=== PATIENT | male | born 1955 | race Caucasian/White ===

== ENCOUNTER 2016-06-19 08:53 | Outpatient (CLI) | payer MEDICAID | END 2016-06-19 08:54 | disposition home or self-care (01) | DX: B18.2 Chronic viral hepatitis C (principal); E03.9 Hypothyroidism, unspecified ==

== ENCOUNTER 2016-08-12 08:00 | Outpatient (CLI) | payer MEDICAID | END 2016-08-12 08:01 | disposition home or self-care (01) | DX: B18.2 Chronic viral hepatitis C (principal) ==

== ENCOUNTER 2016-08-13 12:48 | Outpatient (CLI) | payer MEDICAID | END 2016-08-13 12:49 | disposition home or self-care (01) | DX: B18.2 Chronic viral hepatitis C (principal) ==

== ENCOUNTER 2017-01-06 08:00 | Outpatient (CLI) | payer MEDICAID ==
[2017-01-06 20:04] LABS: THYROID STIMULATING HORMONE 0.5 uIU/mL (0.34-5.60)
== END 2017-01-06 08:01 | disposition home or self-care (01) ==
LOC: LAB.N 08:00
PROVIDERS: ATTEND Family Medicine
DX: E03.9 Hypothyroidism, unspecified (principal)
CPT/HCPCS: 36415; 84439; 84443

== ENCOUNTER 2017-02-02 14:00 | Outpatient (CLI) | payer MEDICAID | END 2017-02-02 14:01 | disposition home or self-care (01) | LOC: LAB 14:00 | PROVIDERS: ATTEND Internal Medicine Gastroenterology | DX: B18.2 Chronic viral hepatitis C (principal) | CPT/HCPCS: 36415; 87522 ==

== ENCOUNTER 2017-08-10 08:00 | Outpatient (CLI) | payer MEDICAID ==
[2017-08-10 19:24] LABS: BASOPHILS % (AUTO) 0.3 %; EOSINOPHILS # (AUTO) 0.1 10^3/uL (0.0-0.7); EOSINOPHILS % (AUTO) 1.2 %; HGB - HEMOGLOBIN 15.2 g/dL (14.0-18.0); LYMPHOCYTES # (AUTO) 1.8 10^3/uL (1.5-3.5); LYMPHOCYTES % (AUTO) 32.3 %; MEAN CORPUSCULAR HEMOGLOBIN 31.4 pg (27.0-31.0); MEAN CORPUSCULAR VOLUME 95.1 fL (80.0-94.0); MEAN PLATELET VOLUME 9.2 fL (7.4-11.4); MONOCYTES # (AUTO) 0.4 10^3/uL (0.0-1.0); MONOCYTES % (AUTO) 7.2 %; NEUTROPHILS # (AUTO) 3.4 10^3/uL (1.5-6.6); PLT - PLATELET COUNT 234 10^3/uL (130-450); RED BLOOD COUNT 4.84 10^6/uL (4.70-6.10); RED CELL DISTRIBUTION WIDTH 13.1 % (12.0-15.0); WHITE BLOOD COUNT 5.7 x10^3/uL (4.8-10.8)
[2017-08-10 19:31] LABS: THYROID STIMULATING HORMONE 0.19 uIU/mL (0.34-5.60)
[2017-08-10 19:33] LABS: FREE T4 (FREE THYROXINE) 1.09 ng/dL (0.58-1.64)
[2017-08-10 19:37] LABS: ALBUMIN 4.6 g/dL (3.2-5.5); ALBUMIN/GLOBULIN RATIO 1.6 (1.0-2.2); ALKALINE PHOSPHATASE 70 IU/L (42-121); ALT ALANINE AMINOTRANSFERASE 16 IU/L (10-60); AST ASPARTATE AMINOTRANSFERASE 23 IU/L (10-42); BILIRUBIN,TOTAL 0.9 mg/dL (0.2-1.0); BUN - BLOOD UREA NITROGEN 18 mg/dL (6-20); CALCIUM 9.4 mg/dL (8.5-10.3); CARBON DIOXIDE - CO2 26 mmol/L (21-32); CHLORIDE 105 mmol/L (101-111); CHOL/HDL RATIO 2.5 (<5.0); CHOLESTEROL 219 mg/dL; CREATININE 1.1 mg/dL (0.6-1.2); GFR - MDRD 68 (>89); GLUCOSE 102 mg/dL (70-100); HDL CHOLESTEROL 88 mg/dL; LDL CHOLESTEROL,CALCULATED 120 mg/dL; LDL/HDL RATIO 1.4 (<3.6); SODIUM 141 mmol/L (135-145); TOTAL PROTEIN 7.5 g/dL (6.7-8.2); VLDL CHOLESTEROL 11 mg/dL
== END 2017-08-10 08:01 | disposition home or self-care (01) ==
LOC: LAB.N 08:00
PROVIDERS: ATTEND Family Medicine
DX: Z51.81 Encounter for therapeutic drug level monitoring (principal); B18.2 Chronic viral hepatitis C; E03.9 Hypothyroidism, unspecified
CPT/HCPCS: 36415; 80053; 80061; 83721; 84439; 84443; 85025

== ENCOUNTER 2018-10-05 08:00 | Outpatient (CLI) | payer MEDICAID ==
[2018-10-05 18:52] LABS: BASOPHILS % (AUTO) 0.4 %; EOSINOPHILS # (AUTO) 0.1 10^3/uL (0.0-0.7); EOSINOPHILS % (AUTO) 0.8 %; LYMPHOCYTES # (AUTO) 1.2 10^3/uL (1.5-3.5); LYMPHOCYTES % (AUTO) 15.7 %; MEAN CORPUSCULAR HGB CONC 33.2 g/dL (32.0-36.0); MEAN CORPUSCULAR VOLUME 99.2 fL (80.0-94.0); MEAN PLATELET VOLUME 10.1 fL (7.4-11.4); MONOCYTES # (AUTO) 0.4 10^3/uL (0.0-1.0); MONOCYTES % (AUTO) 5.1 %; NEUTROPHILS # (AUTO) 6.1 10^3/uL (1.5-6.6); PLT - PLATELET COUNT 224 10^3/uL (130-450); RED BLOOD COUNT 4.84 10^6/uL (4.70-6.10); RED CELL DISTRIBUTION WIDTH 12.5 % (12.0-15.0); WHITE BLOOD COUNT 7.8 x10^3/uL (4.8-10.8)
[2018-10-05 19:17] LABS: ALBUMIN 4.4 g/dL (3.2-5.5); ALBUMIN/GLOBULIN RATIO 1.4 (1.0-2.2); ALKALINE PHOSPHATASE 68 IU/L (42-121); ALT ALANINE AMINOTRANSFERASE 17 IU/L (10-60); AST ASPARTATE AMINOTRANSFERASE 22 IU/L (10-42); BILIRUBIN,TOTAL 1.2 mg/dL (0.2-1.0); BUN - BLOOD UREA NITROGEN 20 mg/dL (6-20); CALCIUM 8.9 mg/dL (8.5-10.3); CARBON DIOXIDE - CO2 26 mmol/L (21-32); CHLORIDE 105 mmol/L (101-111); CHOL/HDL RATIO 2.2 (<5.0); CHOLESTEROL 252 mg/dL; GFR - MDRD 76 (>89); GLUCOSE 100 mg/dL (70-100); HDL CHOLESTEROL 114 mg/dL; LDL CHOLESTEROL,CALCULATED 127 mg/dL; LDL/HDL RATIO 1.1 (<3.6); SODIUM 141 mmol/L (135-145); TOTAL PROTEIN 7.6 g/dL (6.7-8.2); VLDL CHOLESTEROL 11 mg/dL
== END 2018-10-05 23:59 | disposition home or self-care (01) ==
LOC: LAB.N 08:00
PROVIDERS: ATTEND Physician Assistant Medical
DX: R73.01 Impaired fasting glucose (principal); N52.9 Male erectile dysfunction, unspecified; E03.9 Hypothyroidism, unspecified
CPT/HCPCS: 36415; 80053; 80061; 83721; 84443; 85025

== ENCOUNTER 2019-01-12 15:25 | Outpatient (CLI) | payer MEDICAID | END 2019-01-12 23:59 | disposition home or self-care (01) | LOC: LAB.R 15:25 | PROVIDERS: ATTEND Physician Assistant Medical | DX: Z12.11 Encounter for screening for malignant neoplasm of colon (principal) | CPT/HCPCS: 82274 ==

== ENCOUNTER 2019-03-09 08:11 | Day surgery (SDC) | payer MEDICAID ==
[~2019-03-09 08:11] MED LIST: SODIUM/POTASSIUM/MAG SULFATES 354 ML PREP KIT PO SCH
[2019-03-09] MEDS ORDERED: MIDAZOLAM 2 MG/2 ML VIAL IVP ONE (08:12)
[2019-03-09] MEDS ORDERED: fentaNYL 250 MCG/5 ML VIAL IVP ONE (08:12)
[2019-03-09] MEDS ORDERED: LACTATED RINGERS 1,000 ML IV ONE (08:53)
[2019-03-09 11:16] VITALS: BP 140/81
== END 2019-03-09 08:12 | disposition home or self-care (01) ==
LOC: SDS 08:11
PROVIDERS: ATTEND Surgery
PROC: 0DJD8ZZ Inspection of Lower Intestinal Tract, Via Natural or Artificial Opening Endoscopic (ICD-10-PCS; principal; 2019-03-09 09:45)
DX: K57.31 Diverticulosis of large intestine without perforation or abscess with bleeding (principal); K64.8 Other hemorrhoids; F17.210 Nicotine dependence, cigarettes, uncomplicated; I10 Essential (primary) hypertension; Z79.899 Other long term (current) drug therapy; Z80.0 Family history of malignant neoplasm of digestive organs; Z86.010 Personal history of colon polyps
CPT/HCPCS: 45378; A9270; J3010; J7120

== ENCOUNTER 2019-08-29 12:33 | Outpatient (CLI) | payer MEDICAID, OTHER ==
[2019-08-29 18:57] LABS: THYROID STIMULATING HORMONE 3.62 uIU/mL (0.34-5.60)
[2019-08-29 19:01] LABS: FREE T4 (FREE THYROXINE) 1.08 ng/dL (0.58-1.64)
== END 2019-08-29 23:59 | disposition home or self-care (01) ==
LOC: LAB.N 12:33
PROVIDERS: ATTEND Physician Assistant Medical
DX: E03.9 Hypothyroidism, unspecified (principal)
CPT/HCPCS: 36415; 84439; 84443; 86800

== ENCOUNTER 2020-12-23 08:00 | Outpatient (CLI) | payer MEDICAID ==
[2020-12-23 18:28] LABS: BILIRUBIN,URINE NEGATIVE (NEGATIVE); GLUCOSE, URINE (UA) NEGATIVE (NEGATIVE); KETONES,URINE (UA) NEGATIVE (NEGATIVE); LEUKOCYTE ESTERASE, URINE NEGATIVE (NEGATIVE); NITRITE,URINE NEGATIVE (NEGATIVE); OCCULT BLOOD,URINE NEGATIVE (NEGATIVE); PROTEIN,URINE NEGATIVE (NEGATIVE); UROBILINOGEN,URINE 0.2 (NORMAL) E.U./dL (NORMAL)
[2020-12-23 18:34] LABS: AMORPHOUS SEDIMENT,UR Marked /LPF; BACTERIA,URINE None Seen /HPF (None Seen); CLARITY,URINE CLEAR (CLEAR); RBC,URINE 0-5 /HPF (0-5); SQUAMOUS EPITHELIAL CELL,UR RARE Squamous (<= Few); WBC,URINE 0-3 /HPF (0-3)
[2020-12-23 18:39] LABS: BASOPHILS % (AUTO) 0.2 %; EOSINOPHILS # (AUTO) 0.2 10^3/uL (0.0-0.7); EOSINOPHILS % (AUTO) 2.9 %; HCT - HEMATOCRIT 50.9 % (42.0-52.0); HGB - HEMOGLOBIN 17.1 g/dL (14.0-18.0); LYMPHOCYTES # (AUTO) 1.5 10^3/uL (1.5-3.5); LYMPHOCYTES % (AUTO) 26.3 %; MEAN CORPUSCULAR HGB CONC 33.6 g/dL (32.0-36.0); MEAN CORPUSCULAR VOLUME 98.3 fL (80.0-94.0); MONOCYTES # (AUTO) 0.5 10^3/uL (0.0-1.0); NEUTROPHILS # (AUTO) 3.6 10^3/uL (1.5-6.6); NEUTROPHILS % (AUTO) 62.4 %; PLT - PLATELET COUNT 249 10^3/uL (130-450); RED BLOOD COUNT 5.18 10^6/uL (4.70-6.10); RED CELL DISTRIBUTION WIDTH 11.9 % (12.0-15.0); WHITE BLOOD COUNT 5.8 x10^3/uL (4.8-10.8)
[2020-12-23 19:02] LABS: ALBUMIN 4.5 g/dL (3.2-5.5); ALBUMIN/GLOBULIN RATIO 1.6 (1.0-2.2); ALKALINE PHOSPHATASE 77 IU/L (42-121); ALT ALANINE AMINOTRANSFERASE 16 IU/L (10-60); AST ASPARTATE AMINOTRANSFERASE 20 IU/L (10-42); BILIRUBIN,TOTAL 1.2 mg/dL (0.2-1.0); BUN - BLOOD UREA NITROGEN 19 mg/dL (6-20); CARBON DIOXIDE - CO2 29 mmol/L (21-32); CHLORIDE 103 mmol/L (101-111); CHOL/HDL RATIO 2.4 (<5.0); CHOLESTEROL 204 mg/dL; GFR - MDRD 75 (>89); GLUCOSE 104 mg/dL (70-100); HDL CHOLESTEROL 85 mg/dL; LDL CHOLESTEROL,CALCULATED 107 mg/dL; LDL/HDL RATIO 1.3 (<3.6); POTASSIUM 4.3 mmol/L (3.5-5.0); SODIUM 141 mmol/L (135-145); TOTAL PROTEIN 7.4 g/dL (6.7-8.2); TRIGLYCERIDES 60 mg/dL; VLDL CHOLESTEROL 12 mg/dL
[2020-12-23 19:11] LABS: THYROID STIMULATING HORMONE 0.1 uIU/mL (0.34-5.60)
[2020-12-23 19:12] LABS: FREE T3 3.17 pg/mL (2.5-3.9)
[2020-12-23 19:13] LABS: FREE T4 (FREE THYROXINE) 1.7 ng/dL (0.58-1.64)
== END 2020-12-23 23:59 | disposition home or self-care (01) ==
LOC: LAB.WCP 08:00
PROVIDERS: ATTEND Family Medicine
DX: I10 Essential (primary) hypertension (principal); R73.01 Impaired fasting glucose; E03.9 Hypothyroidism, unspecified; R35.1 Nocturia; R63.4 Abnormal weight loss; Z12.5 Encounter for screening for malignant neoplasm of prostate
CPT/HCPCS: 36415; 80053; 80061; 81001; 83721; 84153; 84439; 84443; 84481; 85025

== ENCOUNTER 2020-12-31 08:00 | Outpatient (CLI) | payer MEDICAID | END 2020-12-31 23:59 | disposition home or self-care (01) | LOC: LAB.WCP 08:00 | PROVIDERS: ATTEND Family Medicine | DX: I10 Essential (primary) hypertension (principal); Z12.5 Encounter for screening for malignant neoplasm of prostate; R35.1 Nocturia; R63.4 Abnormal weight loss; R73.01 Impaired fasting glucose; E03.9 Hypothyroidism, unspecified | CPT/HCPCS: 36415; 84153 ==

== ENCOUNTER 2022-08-07 13:41 | Outpatient (CLI) | payer MEDICARE, MEDICAID ==
--- NOTE | 2022-08-07 21:02 | XRAY Report ---
PROCEDURE: Lumbar Spine Complete INDICATIONS: MUSCLE SPASM LUMBAR HIP JOINT PX TECHNIQUE: 4 views of the lumbar spine were acquired. COMPARISON: None. FINDINGS: Bones: 5 drw-pab-krymkic vertebrae are present. Mild scoliosis. Disc space height loss at L4-L5. Sma ll vertebral body ossifies. No vertebral body compression fractures. No suspicious bony lesions. Soft tissues: Overlying bowel gas pattern is normal. No suspicious soft tissue calcifications. IMPRESSION: Moderate degenerative change in the lumbar spine. Reviewed by: Jermaine Staley MD on 08/07/2022 9:01 PM PST Approved by: Jermaine Staley MD on 08/07/2022 9:01 PM [facility] Station ID: [id number]
--- NOTE | 2022-08-07 21:04 | XRAY Report ---
PROCEDURE: Hip w/Pelvis 1V RT INDICATIONS: HIP JOINT PAIN, RIGHT TECHNIQUE: AP pelvis and right hip radiographs COMPARISON: Same day lumbar spine radiographs. FINDINGS: Bones: No fractures or dislocations. Right hip joint space narrowing and osteophytosis. Pelvic ring appears intact. No suspicious bony lesions. Soft tissues: The visualized bowel gas pattern is normal. No suspicious soft tissue calcifications. IMPRESSION: Severe right hip DJD. Reviewed by: Jermaine Staley MD on 08/07/2022 9:03 PM [facility] Approved by: Jermaine Staley MD on 08/07/2022 9:03 PM [facility] Station ID: [id number]
== END 2022-08-07 13:42 | disposition home or self-care (01) ==
LOC: DI 13:41
PROVIDERS: ATTEND Family Medicine
DX: M47.816 Spondylosis without myelopathy or radiculopathy, lumbar region (principal); M16.11 Unilateral primary osteoarthritis, right hip

== ENCOUNTER 2023-02-24 12:14 | Outpatient (CLI) | payer MEDICAID, MEDICARE ==
[2023-02-24 12:29] LABS: BASOPHILS % (AUTO) 0.4 %; EOSINOPHILS # (AUTO) 0.2 10^3/uL (0.0-0.7); EOSINOPHILS % (AUTO) 3.7 %; HCT - HEMATOCRIT 48.5 % (42.0-52.0); HGB - HEMOGLOBIN 16.3 g/dL (14.0-18.0); LYMPHOCYTES # (AUTO) 1.5 10^3/uL (1.5-3.5); LYMPHOCYTES % (AUTO) 31.6 %; MEAN CORPUSCULAR HEMOGLOBIN 32.8 pg (27.0-31.0); MEAN CORPUSCULAR HGB CONC 33.6 g/dL (32.0-36.0); MEAN CORPUSCULAR VOLUME 97.6 fL (80.0-94.0); MEAN PLATELET VOLUME 9.4 fL (7.4-11.4); MONOCYTES # (AUTO) 0.4 10^3/uL (0.0-1.0); MONOCYTES % (AUTO) 7.8 %; NEUTROPHILS # (AUTO) 2.8 10^3/uL (1.5-6.6); NEUTROPHILS % (AUTO) 56.3 %; PLT - PLATELET COUNT 260 10^3/uL (130-450); RED BLOOD COUNT 4.97 10^6/uL (4.70-6.10); RED CELL DISTRIBUTION WIDTH 11.9 % (12.0-15.0); WHITE BLOOD COUNT 4.9 x10^3/uL (4.8-10.8)
[2023-02-24 12:47] LABS: ALBUMIN 4.4 g/dL (3.2-5.5); ALBUMIN/GLOBULIN RATIO 1.5 (1.0-2.2); ALKALINE PHOSPHATASE 93 IU/L (42-121); ALT ALANINE AMINOTRANSFERASE 13 IU/L (10-60); AST ASPARTATE AMINOTRANSFERASE 18 IU/L (10-42); BUN - BLOOD UREA NITROGEN 23 mg/dL (6-20); CALCIUM 9.5 mg/dL (8.5-10.3); CARBON DIOXIDE - CO2 31 mmol/L (21-32); CHLORIDE 104 mmol/L (101-111); CHOL/HDL RATIO 2.3 (<5.0); CHOLESTEROL 187 mg/dL; CREATININE 0.9 mg/dL (0.6-1.3); GFR - MDRD 84 (>89); GLUCOSE 111 mg/dL (74-104); HDL CHOLESTEROL 83 mg/dL; LDL CHOLESTEROL,CALCULATED 93 mg/dL; LDL/HDL RATIO 1.1 (<3.6); POTASSIUM 4.3 mmol/L (3.5-4.5); SODIUM 140 mmol/L (135-145); TOTAL PROTEIN 7.3 g/dL (6.4-8.9); TRIGLYCERIDES 55 mg/dL (48-352); VLDL CHOLESTEROL 11 mg/dL
[2023-02-24 12:49] LABS: ESTIMATED AVERAGE GLUCOSE 105 mg/dL (70-100); HEMOGLOBIN A1c% 5.3 % (4.27-6.07)
[2023-02-24 13:00] LABS: THYROID STIMULATING HORMONE 1.35 uIU/mL (0.34-5.60)
== END 2023-02-24 12:15 | disposition home or self-care (01) ==
LOC: LAB 12:14
PROVIDERS: ATTEND Family Medicine
DX: C61 Malignant neoplasm of prostate (principal); R63.4 Abnormal weight loss; I10 Essential (primary) hypertension; N52.9 Male erectile dysfunction, unspecified; R73.01 Impaired fasting glucose; E03.9 Hypothyroidism, unspecified
CPT/HCPCS: 36415; 80053; 80061; 83036; 83721; 84153; 84443; 85025

== ENCOUNTER 2023-12-16 11:49 | Outpatient (CLI) | payer MEDICARE | END 2023-12-16 11:50 | disposition home or self-care (01) | LOC: LAB 11:49 | PROVIDERS: ATTEND Urology | DX: C61 Malignant neoplasm of prostate (principal) | CPT/HCPCS: 36415; 84153; 84402; 84403 ==

== ENCOUNTER 2023-12-17 14:03 | Outpatient (CLI) | payer MEDICARE | END 2023-12-17 23:59 | disposition critical access hospital (66) | LOC: EMS 14:03 | DX: R07.81 Pleurodynia (principal); R07.89 Other chest pain; R06.00 Dyspnea, unspecified; W17.89XA Other fall from one level to another, initial encounter; Y92.028 Other place in mobile home as the place of occurrence of the external cause | CPT/HCPCS: A0425; A0427 ==

== ENCOUNTER 2023-12-17 14:15 | Emergency (ER) | payer MEDICARE ==
--- NOTE | 2023-12-17 14:42 | ED Physician Documentation ---
PD HPI MAJOR TRAUMA - Stated complaint Stated Complaint: GLF - Chief complaint Chief Complaint: Trauma Ch/Bk - History obtained from History obtained from: Patient - Additional information Additional information: Relatively healthy gentleman with history of prostate cancer last night was going up 4 steps and had a mechanical fall and slipped and injured his left ribs and left upper quadrant. He has severe pain, somewhat better after 100 mcg of f[address]anyl on the way here. No head or neck injury. PD PAST MEDICAL HISTORY - Past Medical History Past Medical History: Yes Cardiovascular: Hypertension Respiratory: None Endocrine/Autoimmune: HyPOthyroidism GI: GI bleed, Colon polyps, Hemorrhoids, Hepatitis : None HEENT: None Psych: None Musculoskeletal: Osteopenia Derm: None - Past Surgical History Past Surgical History: No - Present Medications Home Medications: Ambulatory Orders Medication Instructions Recorded Confirmed Levothyroxine [Synthroid] 75 mcg PO QDAC 03/09/19 03/09/19 lisinopriL [Lisinopril] 5 mg PO 03/09/19 amLODIPine [Norvasc] 15 mg PO DAILY 06/03/23 06/03/23 Oxycodone HCl/Acetaminophen 1 - 2 each PO Q6H PRN #30 tablet 12/17/23 [Percocet 5-325 mg Tablet] - Allergies Allergies/Adverse Reactions: Allergies Allergy/AdvReac Type Severity Reaction Status Date / Time No Known Drug Allergies Allergy Verified 12/17/23 14:26 - Social History Does the pt smoke?: Yes Smoking Status: Current every day smoker Does the pt drink ETOH?: Yes Does the pt have substance abuse?: No - Immunizations Immunizations are current?: No PD ED PE NORMAL - Vitals Vital signs reviewed: Yes - General General: Alert and oriented X 3, No acute distress - HEENT HEENT: PERRL, EOMI - Neck Neck: Supple, no meningeal sign, No bony TTP - Cardiac Cardiac: RRR, No murmur, Other (Exquisitely tender to the mid ribs left posterior axillary line. He also has some left upper quadrant tenderness but not as tender as the ribs.) - Respiratory Respiratory: No respiratory distress, Clear bilaterally - Back Back: No spinal TTP - Extremities Extremities: No deformity, No tenderness to palpate - Neuro Neuro: Alert and oriented X 3, No motor deficit, No sensory deficit, Normal speech Eye Opening: Spontaneous Motor: Obeys Commands Verbal: Oriented GCS Score: 15 Results - Vitals Vitals: Vital Signs - 24 hr 12/17/23 12/17/23 12/17/23 14:22 17:44 18:45 Temperature 36.5 C Heart Rate 57 L 51 L 69 Respiratory 16 20 16 Rate Blood Pressure 142/93 H 139/85 H 167/69 H O2 Saturation 100 98 100 Oxygen O2 Source Room air - EKG (time done) 1430 EKG releavant findings:: EKG personally interpreted by author of this note. Relevant findings are: Rate: Rate (enter#) (63) Rhythm: NSR, LAE Patterson: Normal Intervals: Normal TN QRS: Normal Ischemia: Normal ST segments - Labs Labs: Laboratory Tests 12/17/23 12/17/23 14:56 14:56 WBC 6.2 RBC 4.18 L Hgb 13.8 L Hct 41.2 L MCV 98.6 H MCH 33.0 H MCHC 33.5 RDW 11.7 L Plt Count 235 MPV 9.5 Neut # (Auto) 5.4 Lymph # (Auto) 0.5 L Hamilton # (Auto) 0.3 Eos # (Auto) 0.0 Baso # (Auto) 0.0 Absolute Nucleated RBC 0.00 Nucleated RBC % 0.0 Sodium 139 Potassium 4.6 H Chloride 105 Carbon Dioxide 28 Anion Gap 6.0 BUN 19 Creatinine 0.9 Estimated GFR (MDRD) 84 L Glucose 118 H Calcium 9.3 Total Bilirubin 0.9 AST 18 ALT 15 Alkaline Phosphatase 94 Total Protein 7.3 Albumin 4.3 Globulin 3.0 Albumin/Globulin Ratio 1.4 - Rads (name of study) CT of the chest demonstrates left posterior eighth ninth 10th 11th and 12th ribs with atelectasis versus mild contusion. Relevant Findings:: Final report received, EMP independent interpretation of test all CT abdomen pelvis negative for intra-abdominal injuries. Relevant Findings:: Final report received, EMP independent interpretation of test PD Medical Decision Making - ED course ED course: He presents with left-sided injuries after a fall downstairs. There is some left upper quadrant tenderness which is concerning for splenic injury but really most of the pain was over the ribs. He had 5 rib fractures. He was comfortable and requested discharge. He did receive 2 doses of IV pain medication here with relief but then developed some vomiting from the narcotics and was administered Zofran. He was given an incentive spirometer by the respiratory therapist with instructions on use. CBC showing mild macrocytic anemia. CMP unremarkable. Departure - Departure Disposition: 01 Home, Self Care Clinical Impression: Fracture of rib Qualifiers: Encounter type: initial encounter Rib fracture type: multiple ribs Fracture type: closed Laterality: left Qualified Code(s): S22.42XA - Multiple fractures of ribs, left side, initial encounter for closed fracture Condition: Good Record reviewed to determine appropriate education?: Yes Instructions: ED Fx Rib Prescriptions: Oxycodone HCl/Acetaminophen [Percocet 5-325 mg Tablet] 1 - 2 each PO Q6H PRN #30 tablet PRN Reason: pain Comments: I sent your prescriptions electronically to the [facility] in [place]. You have 5 posterior rib fractures. We expect this to hurt for some time. Use the incentive spirometer soon as you can and return if worse or if pain is uncontrolled. I am prescribing a short course of narcotic pain medication for you. These are potentially dangerous and addictive medications that should be used carefully. These medications may constipate you. Take an hqqx-ogl-zmtwivi stool softener (docusate) twice daily with plenty of water while taking these medications. If you go 24 hours without a bowel movement, take przz-oke-vtzopzg miralax, per package instructions. Do not drink or drive while taking these medications. If you received narcotic or sedating medications while in the emergency department, do not drive for 24 hours. Store this medication in a safe, secure place and out of reach of children. It is a violation of federal law to give or sell this medication to another person or to use in a manner other than prescribed. The ED will not refill narcotic prescriptions, including prescriptions lost or stolen. To dispose of unwanted medications: 1. [facility] provides a drop box for medication in pill form only (no liquids) 8:00 am to 4:30 p.m. Wednesday-Wednesday in the lobby of the [facility], [address] [place] [address]. Empty pills into ziplock bag before disposal. Call [phone] for information. 2.[employer] is a free service available to all [facility] residents. Go to [email or web address] Note that many narcotic pain relievers also contain Tylenol/acetaminophen. Please ensure that your total dose of acetaminophen from all sources does not exceed 3 g (3000 mg) per day. Forms: PCP List Discharge Date/Time: 12/17/23 18:47
[2023-12-17] MEDS: HYDROmorphone 1 MG/ML CARPUJECT IVP STA ×2 (14:47→17:22)
[2023-12-17] MEDS: KETOROLAC 15 MG/ML VIAL IVP STA (14:48)
[2023-12-17 15:01] LABS: BASOPHILS % (AUTO) 0.2 %; EOSINOPHILS % (AUTO) 0.3 %; HCT - HEMATOCRIT 41.2 % (42.0-52.0); HGB - HEMOGLOBIN 13.8 g/dL (14.0-18.0); LYMPHOCYTES # (AUTO) 0.5 10^3/uL (1.5-3.5); LYMPHOCYTES % (AUTO) 7.7 %; MEAN CORPUSCULAR HGB CONC 33.5 g/dL (32.0-36.0); MEAN CORPUSCULAR VOLUME 98.6 fL (80.0-94.0); MEAN PLATELET VOLUME 9.5 fL (7.4-11.4); MONOCYTES # (AUTO) 0.3 10^3/uL (0.0-1.0); MONOCYTES % (AUTO) 5.2 %; NEUTROPHILS # (AUTO) 5.4 10^3/uL (1.5-6.6); NEUTROPHILS % (AUTO) 86.4 %; PLT - PLATELET COUNT 235 10^3/uL (130-450); RED BLOOD COUNT 4.18 10^6/uL (4.70-6.10); RED CELL DISTRIBUTION WIDTH 11.7 % (12.0-15.0); WHITE BLOOD COUNT 6.2 x10^3/uL (4.8-10.8)
[2023-12-17] MEDS ORDERED: SODIUM CHLORIDE 0.9% 1,000 ML IV STA (15:03)
[2023-12-17 15:22] LABS: ALBUMIN 4.3 g/dL (3.2-5.5); ALBUMIN/GLOBULIN RATIO 1.4 (1.0-2.2); BILIRUBIN,TOTAL 0.9 mg/dL (0.2-1.0); CALCIUM 9.3 mg/dL (8.5-10.3); CREATININE 0.9 mg/dL (0.6-1.3); POTASSIUM 4.6 mmol/L (3.5-4.5); TOTAL PROTEIN 7.3 g/dL (6.4-8.9)
[2023-12-17] MEDS ORDERED: iohexoL-300 100 ML VIAL ONE (16:35)
--- NOTE | 2023-12-17 18:09 | CT Report ---
PROCEDURE: Chest W INDICATIONS: l chest wall inj CONTRAST: 100ml omni 300 TECHNIQUE: After the administration of intravenous contrast, a CT scan of the chest was performed. Images were recorded and evaluated at appropriate window settings. Reformats: axial MIP of the chest, coronal and sagittal. For radiation dose reduction, the following was used: automated exposure control, adjustme nt of mA and/or kV according to patient size. COMPARISON: Chest/rib radiographs 12/21/2022. FINDINGS: Image quality: Diagnostic. Chest wall and lower neck: Thyroid appears diminutive and is not well evaluated due to streak artifac t. No breast mass. No axillary or supraclavicular adenopathy by size. Lungs and pleura: No consolidation. Small left pleural effusion. No pneumothorax. Groundglass opaciti es in the left lung base may be related to atelectasis or mild contusion. No suspicious pulmonary nod ules which require follow up. Mediastinum: Heart size is normal. No pericardial effusion. No large vessel abnormality. No mediastin al adenopathy by size criteria. Bones: Minimally displaced fractures of the left posterior 8th through 12th ribs. Scoliotic curvature of the spine and multilevel degenerative changes again seen. Old healed right inferior rib fractures . Upper Abdomen: Separately dictated. IMPRESSION: 1.Nondisplaced fractures of the left posterior 8th through 12th ribs. 2.Adjacent small left pleural effusion. Left basilar groundglass opacities may be related to atelecta sis or a mild contusion. Reviewed by: Ignacio Purcell MD on 12/17/2023 6:08 PM PDT Approved by: Ignacio Purcell MD on 12/17/2023 6:08 PM PDT Station ID: [id number]
--- NOTE | 2023-12-17 18:15 | CT Report ---
PROCEDURE: Abdomen/Pelvis W INDICATIONS: iv only, abd trauma, luq CONTRAST: 100ml omni 300 TECHNIQUE: After the administration of intravenous contrast, a CT scan of the abdomen and pelvis was performed. Images were recorded and evaluated at appropriate window settings. Reformats: coronal and sagittal. F or radiation dose reduction, the following was used: automated exposure control, adjustment of mA and /or kV according to patient size. COMPARISON: None. FINDINGS: Image quality: Diagnostic. Lower chest: Small left pleural effusion and basilar atelectasis or contusion. Liver: No solid mass. Gallbladder: No radiopaque stones or wall thickening. Biliary tree: No intrahepatic or extrahepatic dilation, accounting for age. Spleen: No splenomegaly. Pancreas: No pancreatic ductal dilation. Adrenals: No adrenal nodule. Kidneys and ureters: No hydronephrosis. No renal cystic lesion which requires follow up. No solid mas s. Stomach, bowel and peritoneum: No gastric or small bowel dilation. No abnormal wall thickening. No pa thologic free fluid. Numerous diverticula are seen in the colon without signs of acute diverticulitis . Lymph nodes: No central or retroperitoneal adenopathy. Vessels: No infrarenal aortic aneurysm. Patent portal vein. PELVIS Reproductive organs: Unremarkable. Bladder: No abnormal wall thickening, accounting for underdistention. Pelvic lymph nodes: No pelvic adenopathy by size criteria. Bones: Minimally displaced fractures of the left posterior 8th through 12th ribs. Severe degenerative changes in the right hip. Scoliotic curvature and multilevel degenerative changes are noted in the s pine. Other: Fat-containing periumbilical hernia. Bilateral fat-containing inguinal hernias. Trace fluid is seen in the right inguinal hernia. IMPRESSION: 1.Minimally displaced fractures of the left posterior 8th through 12th ribs. Small left pleural effus ion. 2.No acute traumatic findings in the abdomen or pelvis. Reviewed by: Ignacio Purcell MD on 12/17/2023 6:14 PM PDT Approved by: Ignacio Purcell MD on 12/17/2023 6:14 PM PDT Station ID: [id number]
[2023-12-17] MEDS: ONDANSETRON 4 MG/2 ML VIAL IVP STA (18:29)
[2023-12-17 18:50] VITALS: BP 167/69; O2SAT 100
== END 2023-12-17 18:47 | disposition home or self-care (01) ==
LOC: EDUNIT# → ED 14:15
DX: S22.42XA Multiple fractures of ribs, left side, initial encounter for closed fracture (principal); W10.8XXA Fall (on) (from) other stairs and steps, initial encounter; Y93.89 Activity, other specified; R10.812 Left upper quadrant abdominal tenderness; R11.10 Vomiting, unspecified; T40.2X5A Adverse effect of other opioids, initial encounter; Y92.538 Other ambulatory health services establishments as the place of occurrence of the external cause; F17.200 Nicotine dependence, unspecified, uncomplicated
CPT/HCPCS: 36415; 71260; 74177; 80053; 85025; 93005; 96374; 96375; 96376; 99283; 99284; J1170; Q9967

== ENCOUNTER 2023-12-18 17:41 | Emergency (ER) | payer MEDICARE ==
--- NOTE | 2023-12-18 17:58 | ED Physician Documentation ---
PD HPI MAJOR TRAUMA - Stated complaint Stated Complaint: RIB PX - Chief complaint Chief Complaint: Trauma Ch/Bk - History obtained from History obtained from: Patient - Additional information Additional information: Seen yesterday and diagnosed with 5 rib fractures. He filled the prescription for oxycodone and is taking it as prescribed but pain is uncontrolled. No other new complaints. PD PAST MEDICAL HISTORY - Past Medical History Past Medical History: Yes Cardiovascular: Hypertension Respiratory: None Endocrine/Autoimmune: HyPOthyroidism GI: GI bleed, Colon polyps, Hemorrhoids, Hepatitis : None HEENT: None Psych: None Musculoskeletal: Osteopenia Derm: None - Past Surgical History Past Surgical History: No - Present Medications Home Medications: Ambulatory Orders Medication Instructions Recorded Confirmed Levothyroxine [Synthroid] 75 mcg PO QDAC 03/09/19 12/18/23 lisinopriL [Lisinopril] 5 mg PO 03/09/19 amLODIPine [Norvasc] 15 mg PO DAILY 06/03/23 12/18/23 Oxycodone HCl/Acetaminophen 1 - 2 each PO Q6H PRN #30 tablet 12/17/23 12/18/23 [Percocet 5-325 mg Tablet] Gabapentin [Neurontin] 300 mg PO TID #60 cap 12/18/23 Ibuprofen [Motrin] 800 mg PO Q8H PRN #30 tablet 12/18/23 Lidocaine Patch 5% [Lidoderm Patch] 1 patch TOP DAILY PRN #10 patch 12/18/23 - Allergies Allergies/Adverse Reactions: Allergies Allergy/AdvReac Type Severity Reaction Status Date / Time No Known Drug Allergies Allergy Verified 12/18/23 17:44 - Social History Does the pt smoke?: Yes Smoking Status: Current every day smoker Does the pt drink ETOH?: Yes Does the pt have substance abuse?: No - Immunizations Immunizations are current?: No PD ED PE NORMAL - Vitals Vital signs reviewed: Yes - General General: Alert and oriented X 3, No acute distress - Respiratory Respiratory: No respiratory distress - Neuro Neuro: Alert and oriented X 3 Eye Opening: Spontaneous Motor: Obeys Commands Verbal: Oriented GCS Score: 15 - Psych Psych: Normal mood, Normal affect Results - Vitals Vitals: Vital Signs - 24 hr 12/18/23 17:45 Temperature 36.5 C Heart Rate 60 Respiratory 16 Rate Blood Pressure 146/86 H O2 Saturation 99 Oxygen O2 Source Room air PD Medical Decision Making - ED course ED course: Given the number of rib fractures I did offer admission to him for pain control, that says he has things to take care of and would like more multimodal pain management and would return if that is insufficient. Departure - Departure Disposition: 01 Home, Self Care Clinical Impression: Fracture of rib Qualifiers: Encounter type: initial encounter Rib fracture type: multiple ribs Fracture type: closed Laterality: left Qualified Code(s): S22.42XA - Multiple fractures of ribs, left side, initial encounter for closed fracture Condition: Good Record reviewed to determine appropriate education?: Yes Instructions: ED Fx Rib Prescriptions: Lidocaine Patch 5% [Lidoderm Patch] 1 patch TOP DAILY PRN #10 patch PRN Reason: pain Ibuprofen [Motrin] 800 mg PO Q8H PRN #30 tablet PRN Reason: PAIN &/OR FEVER Gabapentin [Neurontin] 300 mg PO TID #60 cap Comments: I sent your prescriptions electronically to [facility] in [place]. As discussed, admission is not unreasonable given the number of rib fractures and the pain you are in. Please return anytime if you decide that is an option you would like to explore. You can take the new medications in addition to the oxycodone you picked up already. Would like you to follow-up with your doctor in a few days for recheck. Return for new or worsening symptoms. Forms: PCP List
[2023-12-18] MEDS: GABAPENTIN 100 MG CAPSULE PO STA (18:18)
[2023-12-18] MEDS: KETOROLAC 60 MG/2 ML VIAL IM STA (18:19)
[2023-12-18 18:32] VITALS: BP 141/84; O2SAT 100
== END 2023-12-18 18:27 | disposition home or self-care (01) ==
LOC: ED 17:41
DX: S22.42XA Multiple fractures of ribs, left side, initial encounter for closed fracture (principal); W17.89XA Other fall from one level to another, initial encounter; Y92.89 Other specified places as the place of occurrence of the external cause; F17.200 Nicotine dependence, unspecified, uncomplicated
CPT/HCPCS: 96372; 99283; 99284; A9270